=== PATIENT | female | born 1935 | race Native Hawaiian/Other Pacific Islander ===

== ENCOUNTER 2016-11-17 10:41 | Inpatient (IN) | payer MEDICARE, OTHER ==
[~2016-11-17] VITALS: Ht 154.9 cm; Wt 40.4 kg
--- NOTE | 2016-11-17 11:00 | NUR ---
PT VERY AGITATED AND BECOMES COMBATIVE WHEN TRIED TO DO EKG OR ANYOTHER INTERVENTION, COMFORT MEASURES PROVIDED AND MD NOTIFIED.
[2016-11-17] MEDS ORDERED: IV NORMAL SALINE 1000 ML BAG IV ONE (11:15)
[2016-11-17] MEDS ORDERED: SENN8.6T6 PO (11:18)
[2016-11-17] MEDS ORDERED: NUTR1PAC14 PO (11:18)
[2016-11-17] MEDS ORDERED: MULT1TAB11 PO (11:18)
[2016-11-17] MEDS ORDERED: CELE100C PO (11:18)
[2016-11-17] MEDS ORDERED: LEVE500T9 PO (11:18)
[2016-11-17] MEDS ORDERED: LACT1CAP61 PO (11:18)
[2016-11-17] MEDS ORDERED: CLOP75TA2 PO (11:18)
[2016-11-17] MEDS ORDERED: CARV6.252 PO (11:18)
[2016-11-17] MEDS ORDERED: MAGN400O4 PO (11:18)
[2016-11-17] MEDS ORDERED: ACET-2154 PO (11:18)
[2016-11-17] MEDS ORDERED: ASCO500C16 PO (11:18)
[2016-11-17] MEDS ORDERED: ASPI81TA31 PO (11:18)
[2016-11-17] MEDS ORDERED: BISA10SU12 RC (11:18)
[2016-11-17] MEDS ORDERED: SITA25TA PO (11:18)
[2016-11-17] MEDS ORDERED: HALOPERIDOL LACTATE 5 MG/1 ML VIAL IM ONE (11:30)
[2016-11-17] MEDS ORDERED: LORAZEPAM 2 MG/1 ML VIAL IM ONE (11:30)
[2016-11-17] MEDS ORDERED: HALOPERIDOL LACTATE 5 MG/1 ML VIAL ONE (11:31)
[2016-11-17] MEDS ORDERED: LORAZEPAM 2 MG/1 ML VIAL ONE (11:32)
[2016-11-17 11:38] LABS: *BILIRUBIN,URIN NEGATIVE (NEGATIVE); *BLOOD, URINE 2+ (NEGATIVE); *CLARITY,URINE CLOUDY (CLEAR); *COLOR,URINE YELLOW (YELLOW); *KETONES,URINE NEGATIVE (NEGATIVE); *PROTEIN,URINE 2+ (NEGATIVE); *UROBILINOGEN,URINE 0.2 E.U./dl (NORMAL); LEUKOCYTE ESTERASE ,URINE 3+ (NEGATIVE); PH,URINE 8.5 (5.0-8.0); UGLUCOSE NEGATIVE (NEGATIVE)
[2016-11-17 11:59] LABS: NITRITE, URINE POSITIVE (NEGATIVE)
[2016-11-17 12:01] LABS: WBC,URINE 20-50 /HPF (0-3)
[2016-11-17 12:02] LABS: BACTERIA,URINE MODERATE /HPF (NONE SEEN); SQUAMOUS EPITHELIAL CELL,UR MODERATE /HPF (NONE SEEN); TRIPLE PHOSPHATE CRYSTAL,UR FEW /HPF (NONE SEEN); URINE AMORPHOUS PHOSPHATES MANY /HPF
[2016-11-17] MEDS ORDERED: LEVOFLOXACIN 500 MG/D5W 100ML PIGGYBACK IV ONE (12:15)
[2016-11-17] MEDS ORDERED: LEVOFLOXACIN 500 MG/D5W 100 ML ONE (12:24)
[2016-11-17 12:31] LABS: BASOPHILS # (AUTO) 0.1 K/uL (0.0-8.0); BASOPHILS % (AUTO) 0.9 % (0.0-2.0); EOSINOPHILS # (AUTO) 0.1 K/uL (0.0-0.7); EOSINOPHILS % (AUTO) 1.3 % (0.0-7.0); HEMATOCRIT 34.8 % (37-47); HEMOGLOBIN 11.5 G/DL (12.0-16.0); LYMPHOCYTES # (AUTO) 1.2 K/UL (0.8-4.8); LYMPHOCYTES % (AUTO) 15.2 % (20.5-51.5); MEAN CORPUSCULAR HEMOGLOBIN 29.2 UUG (27.0-31.0); MEAN CORPUSCULAR HGB CONC 33 g/dL (32.0-37.0); MEAN CORPUSCULAR VOLUME 88.2 FL (81.0-99.0); MONOCYTES # (AUTO) 0.5 K/UL (0.1-1.30); MONOCYTES % (AUTO) 6.8 % (0.0-11.0); NEUTROPHILS # (AUTO) 5.8 K/UL (1.8-8.9); NEUTROPHILS % (AUTO) 75.8 % (38.5-71.5); PLATELET COUNT (AUTO) 165 K/UL (150-450); RED BLOOD CELL COUNT(AUTO) 3.95 MIL/UL (4.2-5.4); WHITE BLOOD COUNT (AUTO) 7.7 K/UL (4.0-11.2)
[2016-11-17 12:35] LABS: POTASSIUM 4.4 mmol/L (3.5-5.1)
[2016-11-17 12:41] LABS: BILIRUBIN,DIRECT 0.1 mg/dL (0.0-0.2); BILIRUBIN,TOTAL 0.4 mg/dL (0.2-1.0); TOTAL PROTEIN, SERUM 7.1 g/dL (6.4-8.2)
--- NOTE | 2016-11-17 13:56 | NUR ---
PT TRANSFERED TO FLOOR IN STABLE CONDITION. PT HAS CALMED DOWN BUT STILLI RESISTING TREATMENT
[2016-11-17 15:00] VITALS: BP 124/78
[2016-11-17 15:25] VITALS: BP 121/78
[2016-11-17] MEDS ORDERED: ACETAMINOPHEN 325 MG TABLET PO PRN (16:30)
[2016-11-17] MEDS ORDERED: ONDANSETRON 4 MG/2 ML VIAL IV PRN (16:30)
[2016-11-17] MEDS ORDERED: HYDROCODONE/APAP 5-325MG TABLET PO PRN (16:30)
[2016-11-17] MEDS ORDERED: Z GUARD REMEDY PASTE 57 GM TUBE TOP PRN (16:30)
[2016-11-17] MEDS ORDERED: ENOXAPARIN SODIUM 40 MG/0.4 ML DISP.SYRIN SQ SCH (16:30)
[2016-11-17] MEDS ORDERED: MAGNESIUM HYDROXIDE 30 ML LIQUID UDC PO PRN (16:30)
[2016-11-17] MEDS ORDERED: ZOLPIDEM 5 MG TABLET PO PRN (16:30)
[2016-11-17 17:20] LABS: ABG BASE EXCESS -2.7 mmol/L; ABG HCO3 20.2 mmol/L; ABG PCO2 29.3 mmHg (35.0-45.0); ABG PH 7.456 (7.350-7.450); ABG PO2 116.6 mmHg (75.0-100.0); ABG SITE LEFT RADIAL; ABG TOTAL HEMOGLOBIN 11.9 G/dL (12.0-16.0); COHb 1.7 % (0.5-1.5); MetHb 0.3 % (0.0-1.5); O2Hb 96.7 % (94.0-97.0); VENT MODE RA
[2016-11-17] MEDS: CARVEDILOL 6.25 MG TABLET PO SCH (17:42)
[2016-11-17] MEDS: CEFTRIAXONE 1 G in IV DEXTROSE 5% 50 ML IV SCH (17:56)
[2016-11-17] MEDS: IV D5 1/2 NS 1000 ML 1,000 ML IV PRN (17:58)
--- NOTE | 2016-11-17 19:32 | NUR ---
PT IS LAYING IN BED COMFORTABLY. NO S/S OF RESPIRATORY DISTRESS. NO PAIN NOTED. ALL SAFETY NEEDS ARE MET. IV INTACT/PATENT.
[2016-11-17 20:00] VITALS: BP 108/63
--- NOTE | 2016-11-17 20:00 | NUR ---
RECEIVED PATIENT ASLEEP IN BED. AROUSABLE TO NAME BUT FALLS ASLEEP QUICKLY. NO S/S OF PAIN OR DISCOMFORT. NO RESP. DISTRESS NOTED. IVF INFUSING WELL TO LEFT AC #20 GAUGE. PATIENT REPOSITIONED TO SIDE FOR PRESSURE RELIEF. WOUND NOTED TO SACRUM. DRESSING INTACT. F/C IN PLACE. BED ALARM ON. CALL LIGHT IN REACH. ALL NEEDS ATTENDED. WILL CONTINUE TO MONITOR.
[2016-11-17] MEDS: LEVETIRACETAM 500 MG TABLET PO SCH (20:52)
[2016-11-17] MEDS: SENNOSIDES 1 TABLET PO SCH (20:53)
[2016-11-17] MEDS: ENOXAPARIN SODIUM 30 MG/0.3 ML DISP.SYRIN SUBCUT SCH (20:54)
--- NOTE | 2016-11-17 21:00 | NUR ---
PATIENT UNABLE TO TAKE PO MEDS AT THIS TIME. PATIENT IS NOT AWAKE ENOUGH TO SWALLOW. IVF INFUSING WELL. LOVENOX GIVEN ORDERED. WILL CONTINUE TO MONITOR.
--- NOTE | 2016-11-17 21:05 | NUR ---
PATIENT IS NPO. SWALLOW EVAL ORDERED.
--- NOTE | 2016-11-17 22:00 | NUR ---
PATIENT REPOSITIONED TO SIDE FOR PRESSURE RELIEF. NO URINE NOTED IN PRINCE BAG. DIAPER SOAKED WITH URINE. PRINCE CATHETER NOT INSERTED CORRECTLY. NOTIFIED SPACE BUYER. Addendum: 11/18/16 at 0059 by GWYN GOODWIN LVN CLARIFICATION- PRINCE CATHETER NOT IN URETHRA.
--- NOTE | 2016-11-18 | NUR ---
UNABLE TO RE-INSERT PRINCE CATHETER. INTERTYPE OPERATOR AT BEDSIDE TO FURTHER ASSIST AND UNABLE TO REINSERT. RESISTANCE NOTED AND PATIENT C/O PAIN. PATIENT PLACED ON DIAPER AND WILL BE FREQUENTLY MONITORED FOR URINE OUTPUT AND TO MAKE SURE DRESSING NOTED TO SACRAL AREA REMAINS CLEAN, DRY AND INTACT. WILL NOTIFY MD IN AM REGARDING PRINCE. ALL NEEDS ATTENDED.
[2016-11-18 04:00] VITALS: BP 115/52
[2016-11-18] MEDS: PANTOPRAZOLE SODIUM 40 MG TABLET.DR PO SCH (06:13)
--- NOTE | 2016-11-18 06:28 | NUR ---
PATIENT REPOSITIONED TO SIDE. SACRAL DRESSING CHANGED. IVF INFUSING WELL. PATIENT KEPT NPO ORDERED. ALL NEEDS ATTENDED. WILL CONTINUE TO MONITOR. RN ATTEMPTED TO RE-INSERT PRINCE. UNABLE. WILL ENDORSE TO AM SHIFT.
[2016-11-18 07:34] LABS: BASOPHILS % (AUTO) 0.3 % (0.0-2.0); EOSINOPHILS # (AUTO) 0.1 K/uL (0.0-0.7); EOSINOPHILS % (AUTO) 1.7 % (0.0-7.0); HEMATOCRIT 33.4 % (37-47); LYMPHOCYTES # (AUTO) 1.3 K/UL (0.8-4.8); LYMPHOCYTES % (AUTO) 23.6 % (20.5-51.5); MEAN CORPUSCULAR HGB CONC 33 g/dL (32.0-37.0); MEAN CORPUSCULAR VOLUME 88.2 FL (81.0-99.0); MONOCYTES # (AUTO) 0.6 K/UL (0.1-1.30); MONOCYTES % (AUTO) 11.6 % (0.0-11.0); NEUTROPHILS # (AUTO) 3.5 K/UL (1.8-8.9); NEUTROPHILS % (AUTO) 62.8 % (38.5-71.5); PLATELET COUNT (AUTO) 128 K/UL (150-450); RED BLOOD CELL COUNT(AUTO) 3.79 MIL/UL (4.2-5.4)
[2016-11-18 07:38] LABS: WHITE BLOOD COUNT (AUTO) 5.5 K/UL (4.0-11.2)
--- NOTE | 2016-11-18 07:45 | NUR ---
RECEIVED PATIENT IN BED AWAKE WITH GOOD EYE CONTACT ATTEMPT TO VERBALISE BUT INCOHERENT ALL NEEDS ANTICIPATED AND SATISFIED.MAX ASSIST FOR ALL ADL.PATIENT REMAIN NPO ORDERED ORAL CARE GIVEN AND TOLERATED WELL.WILL CONTINUE TO OBSERVE.
[2016-11-18 07:54] LABS: MAGNESIUM 1.8 mg/dL (1.8-2.4)
[2016-11-18 08:00] LABS: THYROID STIMULATING HORMONE 2.742 mIU/mL (0.358-3.740)
[2016-11-18] MEDS: CARVEDILOL 6.25 MG TABLET PO SCH ×2 (08:00→17:11)
[2016-11-18] MEDS: CLOPIDOGREL 75 MG TABLET PO SCH (08:28)
[2016-11-18] MEDS: LEVETIRACETAM 500 MG TABLET PO SCH ×2 (08:28→22:00)
[2016-11-18] MEDS: ASPIRIN 81 MG TAB.CHEW PO SCH ×2 (08:28→17:11)
[2016-11-18] MEDS: LINAGLIPTIN 5 MG TABLET PO SCH (08:29)
[2016-11-18] MEDS ORDERED: SITAGLIPTIN PHOSPHATE 50 MG TABLET PO SCH (09:00)
--- NOTE | 2016-11-18 10:46 | NUR ---
PATIENT SEEN BY DR SMITH FOOTE INFORMED HIM THAT PATIENT IN NOTHING BY MOUTH INQUIRED IF THAT INCLUDES MEDICATIONS BECAUSE HERE SWALLOW EVAL HAS NOT BEEN DONE YET AND HE STATED TO GO AHEAD AND FEED THE PATIENT PUREED DIET AND NOTED.
[2016-11-18 12:09] VITALS: BP 132/69
[2016-11-18] MEDS: IV D5 1/2 NS 1000 ML 1,000 ML IV PRN (13:04)
--- NOTE | 2016-11-18 13:33 | NUR ---
AWAKE TALKING TO HER SELF TURNED AND REPOSITIONED Q2H SPOON FED AND ATE 40%WITH NO ASPIRATION AT THIS TIME.TURNED AND REPOSITIONED Q2H MADE COMFORTABLE.
[2016-11-18 16:09] VITALS: BP 137/73
[2016-11-18] MEDS: QUETIAPINE FUMARATE 25 MG TABLET PO SCH ×2 (17:11→22:00)
[2016-11-18] MEDS: CEFTRIAXONE 1 G in IV DEXTROSE 5% 50 ML IV SCH (17:16)
--- NOTE | 2016-11-18 18:00 | NUR ---
ALL NEEDS ANTICIPATED AND SATISFIED MADE COMFORTABLE.
--- NOTE | 2016-11-18 19:45 | NUR ---
Patient received sleeping in bed, breathing unlabored. IV fluids running in left AC, intact and patent. Remains confused and disoriented. Bae catheter intact and flowing yellow and cloudy. Open wound on sacrum, covered with mepalex. Patient turned every two hours and on first step mattress. No acute distress noted. Bed in low and locked position. Will continue to monitor for safety.
[2016-11-18 20:00] VITALS: BP 126/62
[2016-11-18] MEDS: ENOXAPARIN SODIUM 30 MG/0.3 ML DISP.SYRIN SUBCUT SCH (21:04)
[2016-11-18] MEDS: SENNOSIDES 1 TABLET PO SCH (22:00)
--- NOTE | 2016-11-18 22:30 | NUR ---
PO MEDS AT BEDTIME NOT GIVEN DUE TO PATIENT SLEEPING AND FALLING ASLEEP WHEN AWAKENED. PATIENT BREATHING UNLABORED. WILL NOTIFY
--- NOTE | 2016-11-19 03:00 | NUR ---
PATIENT SLEEPING IN BED AT THIS TIME, BREATHING UNLABORED. NO ACUTE DISTRESS NOTED. WILL CONTINUE TO MONITOR FOR SAFETY.
[2016-11-19] MEDS: IV D5 1/2 NS 1000 ML 1,000 ML IV PRN ×2 (03:24→16:52)
[2016-11-19 04:53] VITALS: BP 125/55
[2016-11-19] MEDS: PANTOPRAZOLE SODIUM 40 MG TABLET.DR PO SCH (06:22)
--- NOTE | 2016-11-19 06:33 | NUR ---
PATIENT RESTING IN BED COMFORTABLY. PRINCE CATHETER INTACT, CLOUDY AND YELLOW IN COLOR. IV FLUIDS RUNNING IN LEFT AC, INTACT AND PATENT. PT CHANGED BY STAFF AND TURNED EVERY TWO HOURS. DRESSING TO SACRUM INTACT. SAFETY MEASURES MAINTAINED.
[2016-11-19] MEDS: ASPIRIN 81 MG TAB.CHEW PO SCH (08:20)
[2016-11-19] MEDS: CLOPIDOGREL 75 MG TABLET PO SCH (08:20)
[2016-11-19] MEDS: LEVETIRACETAM 500 MG TABLET PO SCH ×2 (08:21→21:48)
[2016-11-19] MEDS: CARVEDILOL 6.25 MG TABLET PO SCH ×2 (08:21→17:47)
[2016-11-19] MEDS: LINAGLIPTIN 5 MG TABLET PO SCH (08:21)
[2016-11-19] MEDS: QUETIAPINE FUMARATE 25 MG TABLET PO SCH ×3 (08:23→21:41)
[2016-11-19 11:58] VITALS: BP 124/54
--- NOTE | 2016-11-19 12:00 | NUR ---
PATIENT SEEN AND EVALUATED BY DR VAZQUEZ WITH NO NEW ORDERS STATED TO CONTINUE SAME PLAN OF CARE AT THIS TIME PATIENT IS CALM AND COOPERATIVE.
[2016-11-19 16:01] VITALS: BP 126/70
[2016-11-19] MEDS: CEFTRIAXONE 1 G in IV DEXTROSE 5% 50 ML IV SCH (16:25)
--- NOTE | 2016-11-19 17:20 | NUR ---
TOLERATING IV ANTIBIOTICS ORDERED WITH NO ADVERSE OR ALLERGIC REACTIONS AT THIS TIME.SPOON FED MEALS WITH NO ASPIRATION AT THIS TIME.
[2016-11-19 20:00] VITALS: BP 136/77
[2016-11-19 20:06] VITALS: BP 136/77
[2016-11-19] MEDS: SENNOSIDES 1 TABLET PO SCH (21:45)
[2016-11-19] MEDS: ENOXAPARIN SODIUM 30 MG/0.3 ML DISP.SYRIN SUBCUT SCH (21:45)
[2016-11-20 04:00] VITALS: BP 138/71
[2016-11-20 05:10] VITALS: BP 138/71
[2016-11-20] MEDS: IV D5 1/2 NS 1000 ML 1,000 ML IV PRN ×2 (06:50→21:37)
[2016-11-20] MEDS: PANTOPRAZOLE SODIUM 40 MG TABLET.DR PO SCH (06:52)
[2016-11-20] MEDS: CLOPIDOGREL 75 MG TABLET PO SCH (08:29)
[2016-11-20] MEDS: ASPIRIN 81 MG TAB.CHEW PO SCH (08:29)
[2016-11-20] MEDS: LINAGLIPTIN 5 MG TABLET PO SCH (08:29)
[2016-11-20] MEDS: QUETIAPINE FUMARATE 25 MG TABLET PO SCH ×3 (08:29→20:54)
[2016-11-20] MEDS: LEVETIRACETAM 500 MG TABLET PO SCH ×2 (08:30→20:53)
[2016-11-20] MEDS: CARVEDILOL 6.25 MG TABLET PO SCH ×2 (08:30→17:14)
[2016-11-20] MEDS ORDERED: QUET25TA PO (10:38)
[2016-11-20] MEDS ORDERED: SULF1TAB47 PO (10:38)
--- NOTE | 2016-11-20 10:58 | NUR ---
NEW ORDER NOTED FROM DR NICOLE WITH ORDER TO DISCHARGE PATIENT TO [facility] TODAY.CYBER FORENSIC SPECIALIST AWARE AND STATED WILL CONFIRM WITH THE [facility]AC[facility] RE AVAILABILITY OF BED.
[2016-11-20 11:44] VITALS: BP 96/44
--- NOTE | 2016-11-20 13:00 | NUR ---
PER THE PYTHON DEVELOPER PATIENT WILL BE DISCHARGED TOMORROW ROUTE SUPERVISOR IS AWARE.
[2016-11-20 15:35] VITALS: BP 118/58
[2016-11-20] MEDS: CEFTRIAXONE 1 G in IV DEXTROSE 5% 50 ML IV SCH (16:11)
--- NOTE | 2016-11-20 18:00 | NUR ---
RESTING WITH IV FLUID IN PROGRESS ORDERED AND IV ANTIBIOTICS ORDERED WITH NO ADVERSE OR ALLERGIC REACTIONS AT THIS TIME.WILL CONTINUE TO OBSERVE.
[2016-11-20 20:00] VITALS: BP 140/75
--- NOTE | 2016-11-20 20:00 | NUR ---
RECEIVED PATIENT ASLEEP IN BED. EASILY AROUSABLE. ALERT TO SELF. IVF INFUSING WELL TO LEFT AC. NO S/S OF PAIN OR DISCOMFORT. NO RESP. DISTRESS NOTED. VSS. ON AIR MATTRESS. F/C INTACT AND PATENT. CALL LIGHT IN REACH. ALL NEEDS ATTENDED. WILL CONTINUE TO MONITOR.
[2016-11-20] MEDS: SENNOSIDES 1 TABLET PO SCH (20:53)
[2016-11-20] MEDS: ENOXAPARIN SODIUM 30 MG/0.3 ML DISP.SYRIN SUBCUT SCH (20:53)
--- NOTE | 2016-11-20 22:00 | NUR ---
CHANGED SACRAL DRESSING. CLEAN, DRY AND INTACT. WILL CONTINUE TO MONITOR.
[2016-11-21 04:00] VITALS: BP 146/77
[2016-11-21] MEDS: PANTOPRAZOLE SODIUM 40 MG TABLET.DR PO SCH (06:15)
--- NOTE | 2016-11-21 06:24 | NUR ---
PATIENT ASLEEP. SLEPT WELL THROUGHOUT THE NIGHT. VSS. IVF INFUSING WELL. REPOSITIONED TO SIDE. BILATERAL HEELS OFF-LOADING FOR PRESSURE RELIEF. CALL LIGHT IN REACH. ALL NEEDS ATTENDED.
[2016-11-21] MEDS: LINAGLIPTIN 5 MG TABLET PO SCH (08:08)
[2016-11-21] MEDS: CLOPIDOGREL 75 MG TABLET PO SCH (08:08)
[2016-11-21] MEDS: ASPIRIN 81 MG TAB.CHEW PO SCH (08:08)
[2016-11-21] MEDS: LEVETIRACETAM 500 MG TABLET PO SCH (08:08)
[2016-11-21] MEDS: QUETIAPINE FUMARATE 25 MG TABLET PO SCH ×2 (08:08→16:27)
[2016-11-21] MEDS: CARVEDILOL 6.25 MG TABLET PO SCH ×2 (08:09→17:37)
--- NOTE | 2016-11-21 09:58 | NUR ---
PATIENT IS FOR DISCHARGE TODAY BACK TO THE [facility] AWAITING FOR THE [facility] DEVELOPMENT GEOLOGIST TO MAKE CONTACT WITH THE FACILITY TO AVAILABILITY OF BED.
--- NOTE | 2016-11-21 10:57 | NUR ---
HEATHER GOLDEN STATED THAT PER THE PEST CONTROL APPLICATOR THE PATIENT WILL BE PICKED UP BY [facility] ABOUT 1930 TODAY.
[2016-11-21 11:42] VITALS: BP 119/67
--- NOTE | 2016-11-21 11:50 | NUR ---
WOUND CARE CONSULT: DIFFICULT ASSESSMENT DUE TO PT COMBATIVE AT TIMES. 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 PT ON FIRST STEP MATTRESS. RECOMMENDATIONS MADE FOR WOUND CARE. DISCUSSED WITH NURSING STAFF. RECOMMEND SURGICAL CONSULT. WILL SEE PRN. ROBERTS IN AGREEMENT WITH PLAN OF CARE. Addendum: 11/21/16 at 1155 by JESSICA COSTA RN Amended: Links added.
--- NOTE | 2016-11-21 11:53 | NUR ---
PATIENT SEEN AND EXAMINED BY JESSICA GRADES 1 THROUGH 6 TEACHER WITH NEW ORDERS AND NOTED.D/C PLANNING IN PROGRESS AT THIS TIME
--- NOTE | 2016-11-21 13:50 | NUR ---
CALLED [facility] TO INQUIRE ON VACCINATION INFORMATION SPOKE WITH LOPEZ AND SHE STATED THAT PATIENT REFUSED THE FLU SHOT THIS FLU SEASON AND THE LAST TIME SHE HAD ONE WAS 03/22/15. FOR THE PNEUMONIA SHOT THE LAST ONE WAS 10/22/2014
[2016-11-21 15:34] VITALS: BP 126/62
--- NOTE | 2016-11-21 16:05 | NUR ---
CALLED [facility] AND REPORT GIVEN TO DANIELLE FOR CONTINUING CARE PATIENT WILL BE PICKED UP BY [facility] ABOUT 1929
[2016-11-21] MEDS: CEFTRIAXONE 1 G in IV DEXTROSE 5% 50 ML IV SCH (16:27)
[2016-11-21 17:37] VITALS: BP 122/66
--- NOTE | 2016-11-21 18:00 | NUR ---
AWAITING FOR PATIENT TO BE PICKED UP SCHEDULED FOR 1929
--- NOTE | 2016-11-21 20:46 | NUR ---
BANANA RIPENING ROOM SUPERVISOR FROM [facility] HERE WITH WHEELCHAIR. D/C PATIENT VIA WHEELCHAIR. VSS. NOT IN ACUTE RESPIRATORY DISTRESS.
== END 2016-11-21 21:00 | DRG 689 ==
LOC: ER 10:41 → MED 13:50
DX: N39.0 Urinary tract infection, site not specified (principal); G93.49 Other encephalopathy; M48.56XA Collapsed vertebra, not elsewhere classified, lumbar region, initial encounter for fracture; F03.91 Unspecified dementia, unspecified severity, with behavioral disturbance; L89.159 Pressure ulcer of sacral region, unspecified stage; B96.20 Unspecified Escherichia coli [E. coli] as the cause of diseases classified elsewhere; E11.9 Type 2 diabetes mellitus without complications; F29 Unspecified psychosis not due to a substance or known physiological condition; F94.0 Selective mutism; G40.909 Epilepsy, unspecified, not intractable, without status epilepticus; H40.9 Unspecified glaucoma; H54.8 Legal blindness, as defined in USA; I10 Essential (primary) hypertension; M81.0 Age-related osteoporosis without current pathological fracture; K21.9 Gastro-esophageal reflux disease without esophagitis; J30.9 Allergic rhinitis, unspecified; I70.0 Atherosclerosis of aorta; Z79.899 Other long term (current) drug therapy; M19.91 Primary osteoarthritis, unspecified site
CPT/HCPCS: 36415; 36600; 70030-TC; 71010; 83690; 83735; 84100; 84443; 85025; 85730; 87040; 87077; 87086; 92526; 92610; 93005; 97001; 97003; A4663; J0696; J1630; J1650; J1956; J2060; J3490; J7030; J7060